=== PATIENT | male | born 1960 | race Caucasian/White ===

== ENCOUNTER 2018-12-21 20:41 | Emergency (ER) | payer BC ==
[2018-12-21] MEDS ORDERED: Bacitracin Oint 1 GM U/D Packet TOP ONE (22:59)
--- NOTE | 2018-12-21 22:59 | EDM.PDOC ---
ED HPI GENERAL MEDICAL PROBLEM - General Chief Complaint: Lower Extremity Injury/Pain Stated Complaint: Fell on Dock Time Seen by Provider: 12/21/18 22:47 Source of Information: Reports: Patient, Family, RN Notes Reviewed History Limitations: Reports: No Limitations - History of Present Illness INITIAL COMMENTS - FREE TEXT/NARRATIVE: 58-year-old gentleman presents emergency department today following fall at home he does take xaralto for his atrial fibrillation he has his left newell now has a large ecchymotic bruise area that is painful no other Left Leg Pain Score (Numeric/FACES): 6 - Related Data Allergies Allergy/AdvReac Type Severity Reaction Status Date / Time cefuroxime [From Ceftin] Allergy Hives Verified 12/21/18 22:32 Home Meds: Home Meds Allopurinol [Zyloprim] 150 mg PO DAILY 12/21/18 [History] Amiodarone [Cordarone] 1 tab PO DAILY 12/21/18 [History] Bumetanide 1 tab PO DAILY 12/21/18 [History] Doxycycline Hyclate 1 tab PO DAILY 12/21/18 [History] Ibuprofen 1 tab PO ASDIRECTED 12/21/18 [History] Levothyroxine [Synthroid] 1 tab PO DAILY 12/21/18 [History] Magnesium Oxide 1 tab PO DAILY 12/21/18 [History] Metoprolol Succinate [Toprol XL 100mg] 1 tab PO BEDTIME 12/21/18 [History] Potassium Chloride 1 tab PO BID 12/21/18 [History] Rivaroxaban [Xarelto] 1 tab PO DAILY 12/21/18 [History] amLODIPine Besylate [Amlodipine Besylate] 1 tab PO DAILY 12/21/18 [History] Past Medical History HEENT History: Reports: Impaired Vision Cardiovascular History: Reports: Afib, Heart Failure, Hypertension Respiratory History: Reports: PE Genitourinary History: Reports: Renal Calculus Musculoskeletal History: Reports: Fracture Endocrine/Metabolic History: Reports: Hypothyroidism, Obesity/BMI 30+ Hematologic History: Reports: Anticoagulation Therapy Dermatologic History: Reports: Other (See Below) Other Dermatologic History: patient gets frequent abcess' between thighs. - Past Surgical History Cardiovascular Surgical History: Reports: Cardiac Ablation GI Surgical History: Reports: Appendectomy Musculoskeletal Surgical History: Reports: Other (See Below) Other Musculoskeletal Surgeries/Procedures:: stem cell injections in knee. Social & Family History - Tobacco Use Smoking Status *Q: Never Smoker - Caffeine Use Caffeine Use: Reports: Soda Other Caffeine Use: daily - Alcohol Use Days Per Week of Alcohol Use: 4 Number of Drinks Per Day: 3 Total Drinks Per Week: 12 - Recreational Drug Use Recreational Drug Use: No Review of Systems - Review of Systems Review Of Systems: See Below Constitutional: Reports: No Symptoms Respiratory: Reports: No Symptoms Cardiovascular: Reports: No Symptoms Musculoskeletal: Reports: Leg Pain ED EXAM, GENERAL - Physical Exam Exam: See Below Free Text/Narrative:: 6 examination of the leg reveals a skin tear approximately 4 cm x 4 cm the superficial layer of skin is missing, there is a large ecchymotic bruise approximately 15 cm x 10 cm it is firm and tender to the touch Exam Limited By: No Limitations General Appearance: Alert, WD/WN, No Apparent Distress Course - Vital Signs Last Recorded V/S: Last Vital Signs Temp 100.1 F 12/21/18 22:29 Pulse 96 12/21/18 22:29 Resp 19 12/21/18 22:29 BP 129/82 12/21/18 22:29 Pulse Ox 94 L 12/21/18 22:29 - Orders/Labs/Meds Orders: Active Orders 24 hr Category Date Time Status Vaccines to be Administered [RC] PER UNIT ROUTINE Care 12/21/18 23:03 Active Tibia Fibula Lt [CR] Stat Exams 12/21/18 22:54 Taken Meds: Medications Discontinued Medications Generic Name Dose Route Start Last Admin Trade Name Drakeq PRN Reason Stop Dose Admin Bacitracin 1 dose 12/21/18 22:59 Bacitracin Oint 1 Gm TOP 12/21/18 23:00 ONETIME ONE Diphtheria/Tetanus/Acell Pertussis 0.5 ml 12/21/18 23:03 Adacel IM 12/21/18 23:04 .ONCE ONE Departure - Departure Time of Disposition: 23:40 Disposition: Home, Self-Care 01 Condition: Fair Clinical Impression: Contusion of left leg Qualifiers: Encounter type: initial encounter Qualified Code(s): S80.12XA - Contusion of left lower leg, initial encounter - Discharge Information Referrals: PCP,None [Primary Care Provider] - Forms: ED Department Discharge Additional Instructions: Follow-up primary care as needed, call return to the emergency department worsening of symptoms - My Orders Last 24 Hours: My Active Orders 12/21/18 22:54 Tibia Fibula Lt [CR] Stat 12/21/18 23:03 Vaccines to be Administered [RC] PER UNIT ROUTINE - Assessment/Plan Last 24 Hours: My Active Orders 12/21/18 22:54 Tibia Fibula Lt [CR] Stat 12/21/18 23:03 Vaccines to be Administered [RC] PER UNIT ROUTINE Plan: Assessment Acuity = acute Site and laterality = ecchymotic bruise with skin tear left newell Etiology = secondary trauma Manifestations = none Location of injury = Home Lab values = left tib-fib I did review films myself I cannot appreciate any acute process, the official read from radiology is pending Plan Discharge home symptomatically care follow-up primary care as needed This note was dictated using [employer] voice recognition software please call with any questions on syntax or grammar.
[2018-12-21] MEDS ORDERED: Diphtheria,Pertussis(Acell),Tetanus Vaccine 0.5 ML SDV IM ONE (23:03)
--- NOTE | 2018-12-22 00:02 | CRLCR ---
Indication: Fell getting out of boat Technique: Frontal and lateral views left tibia and fibula Comparison: None Findings: Bones: Alignment is normal. No fractures or bone lesions. Joint spaces: Moderate tricompartmental degenerative changes in the knee joint. Soft tissues: Soft tissue swelling anterior to the distal 3rd of the tibia. Impression: No acute fracture or subluxation. Soft tissue contusion anterior to the distal 3rd of the tibia. Dictated by Matilde Fernandes MD @ Dec 21 2018 11:59PM Signed by Dr. Matilde Fernandes @ Dec 22 2018 12:02AM
== END 2018-12-22 00:17 | disposition home or self-care (01) ==
LOC: JP.ED 20:41
DX: S81.812A Laceration without foreign body, left lower leg, initial encounter (principal); I11.0 Hypertensive heart disease with heart failure; I50.9 Heart failure, unspecified; I48.91 Unspecified atrial fibrillation; E03.9 Hypothyroidism, unspecified; W18.39XA Other fall on same level, initial encounter; Z23 Encounter for immunization; Z79.01 Long term (current) use of anticoagulants; Z79.899 Other long term (current) drug therapy; Z88.8 Allergy status to other drugs, medicaments and biological substances
CPT/HCPCS: 73590-LT; 90471; 90715; 99283-25